=== PATIENT | female | born 1960 | race Caucasian/White ===

== ENCOUNTER → 2016-08-16 | Outpatient (CLI) | payer OTHER ==
[~2016-08-16] MED LIST: FIORINAL CAPSUL1 CAP PO; IMITREX PO; PHENERGAN PO
--- NOTE | ~2016-08-16 | TM ---
[id number] NAME: YULY DAVIDSON MR#: [id number] PROCEDURE PERFORMED Treadmill stress test. DESCRIPTION Resting heart rate is 76. Resting blood pressure is 170/100 mmHg. Baseline EKG shows normal sinus rhythm. No significant ST-T wave changes. PROCEDURE The patient was made to exercise on a standard [place] protocol. Total exercise time is 8 minutes, completing 2 minutes of stage 3 on a standard [place] protocol. Test stopped because target heart rate achieved and also extremely elevated blood pressure. Maximal heart rate obtained is 162, which is 98% of maximum predicted heart rate. Maximal blood pressure obtained is 220/[address]-T wave changes suggestive of ischemia. No arrhythmias noted. CONCLUSION 1. Fair exercise tolerance for age. 2. There is no clinical, hemodynamic or EKG evidence of ischemia at moderate workload (98% of maximum predicted heart rate, 10.1 METs). 3. Normal heart rate response. 4. The patient's baseline blood pressure was elevated at 170/100 mmHg with peak blood pressure of 210/110 mmHg. 5. Normal regular treadmill stress test with baseline extremely elevated blood pressure of 170/100 mmHg, hypertensive blood pressure response with a peak blood pressure of 220/100 mmHg. 6. Patient is recommended to be started on antihypertensive medications. Dictated by...
== END | disposition home or self-care (01) ==
LOC: CEKG 08:50
DX: R07.89 Other chest pain (principal)
CPT/HCPCS: 93017